=== PATIENT | male | born 2000 | race Caucasian/White ===

== ENCOUNTER → 2020-12-24 18:17 | Outpatient (CLI) | payer MEDICAID, SELFPAY ==
[2020-12-24 19:02] LABS: Basophils % 0.2 % (0.1-2.0); Eosinophils # 0.1 K/mm3 (0.0-0.4); Eosinophils % 0.5 % (0.1-12.0); Hematocrit 46.1 % (42.0-52.0); Hemoglobin 15.6 g/dL (14.1-18.0); Lymphocytes # 2.3 K/mm3 (0.7-4.5); Lymphocytes % 20.5 % (10-50); Mean Corpuscular HGB Conc 33.8 g/dL (31.8-35.4); Mean Corpuscular Hemoglobin 29.5 pg (27.0-31.2); Mean Corpuscular Volume 87.4 fl (80-94); Monocytes # 0.7 K/mm3 (0.1-1.0); Monocytes % 6.7 % (1.7-9.3); Neutrophils # 7.9 K/mm3 (1.8-7.8); Platelet Count 330 K/mm3 (142-424); Red Blood Count 5.28 M/mm3 (4.60-6.20); Red Cell Distribution Width 13.6 % (11.5-17.5)
[2020-12-24 19:05] LABS: Alanine Aminotransferase 43 U/L (12-78); Albumin Level 4.6 g/dl (3.5-5.0); Alkaline Phosphatase 138 U/L (38-126); Anion Gap 10.2 mEq/L (5-15); Aspartate Amino Transferase 40 U/L (17-59); Bilirubin,Total 0.5 mg/dl (0.2-1.3); Blood Urea Nitrogen 11 mg/dl (9-20); Calcium 9.8 mg/dl (8.4-10.2); Carbon Dioxide 28 mmol/L (22.0-30.0); Chloride 104 mmol/L (98-107); Estimated Glomerular Filt Rate 121 ml/min (>60); GFR (African American) 146 ML/MIN (>60); Globulin 4.4 g/dL (1.3-3.2); Glucose 99 mg/dl (74-100); Potassium 4.2 mmoL/L (3.5-5.1); Sodium 138 mmol/L (136-145)
[2020-12-24 19:37] LABS: Thyroid Stimulating Hormone 2.86 uIU/mL (0.465-4.68)
[2020-12-24 19:55] LABS: Vitamin B12 195 pg/mL (239-931)
== END ==
PROVIDERS: Visit Provider Family Medicine
DX: G43.909 Migraine, unspecified, not intractable, without status migrainosus (principal)
CPT/HCPCS: 80053; 82607; 84443; 85025

== ENCOUNTER → 2021-01-04 08:25 | Outpatient (CLI) | payer MEDICAID, SELFPAY ==
--- NOTE | 2021-01-04 08:25 | US_ITS ---
PROCEDURE: US LIVER Referring Doctor: Sarkis Valle Patient Age:20Y CLINICAL INDICATION: fatty liver Elevated liver enzymes/LFTs COMPARISON: No exams were available for comparison FINDINGS: Large patient. LIVER: Hepatic steatosis/diffuse fatty changes. No hepatic mass. No focal liver lesion.. No biliary ductal dilatation Portal vein appears to have normal direction and flow GALLBLADDER. Normal size. No gallbladder wall thickening nor inflammatory changes. Trace, minimal sludge and debris at gallbladder most evident towards dependent gallbladder. No gallstones evident COMMON BOWEL DUCT-normal measuring 3 mm at hilum of liver.. No intrahepatic biliary ductal dilatation either RIGHT KIDNEY. Normal size 11.35 cm in length. Cortex well maintained. No hydronephrosis nor mass. PANCREAS: Unremarkable. Head and body are best visualized and appear satisfactory tail obscured by overlying gas IMPRESSION: 1. No acute findings in the abdomen. 2..No gallstones evident. Only trace sludge at gallbladder 3.. Diffuse fatty changes the liver/hepatic steatosis Diffuse fatty changes of liver/hepatic steatosis Dictated by: Leandro Walsh MD 01/04/2021 12:51 Leandro Walsh MD in [facility] 01/04/2021 12:51
== END ==
PROVIDERS: PCP Family Medicine; Visit Provider Family Medicine
DX: K76.0 Fatty (change of) liver, not elsewhere classified (principal)
CPT/HCPCS: 76705

== ENCOUNTER → 2021-01-21 18:00 | Outpatient (CLI) | payer MEDICAID, SELFPAY ==
[2021-01-21 19:46] LABS: T4 (Thyroxine) 6.8 ug/dl (5.53-11.0)
[2021-01-21 20:00] LABS: Thyroid Stimulating Hormone 2.53 uIU/mL (0.465-4.68)
== END ==
PROVIDERS: Visit Provider Family Medicine
DX: R53.83 Other fatigue (principal)
CPT/HCPCS: 84436; 84443

== ENCOUNTER → 2021-02-19 14:31 | Outpatient (CLI) | payer MEDICAID, SELFPAY ==
--- NOTE | 2021-02-19 14:31 | CT_ITS ---
PROCEDURE: CT HEAD/BRAIN WO CON CLINICAL INDICATION: headache COMPARISON: No exams were available for comparison TECHNIQUE: Axial images obtained. All CT scans at the facility use one or more dose reduction, viz: automated exposure control, ma/kV adjustment per patient size (including targeted exams where dose is matched to indication, i.e. head), or iterative reconstruction technique. FINDINGS: No midline shift, mass effect, intra or extra-axial intracranial hemorrhage, hydrocephalus, or extra-axial fluid collection is evident. The faust-white matter differentiation is unremarkable. Brain parenchymal volume is appropriate for the age of the patient. The calvarium has an unremarkable appearance. Visualized paranasal sinuses and mastoid air cells are clear. No sinus air-fluid level. IMPRESSION: No acute intracranial process Dictated by: Keeley Seymour 02/19/2021 16:37 Keeley Seymour in [facility] 02/19/2021 16:37
== END ==
PROVIDERS: PCP Family Medicine; Visit Provider Specialist
DX: R51.9 Headache, unspecified (principal)
CPT/HCPCS: 70450; 95806

== ENCOUNTER 2021-11-07 07:54 | Emergency (ER) | payer MEDICAID, SELFPAY ==
[2021-11-07 07:56] VITALS: BP 135/75; PULSE 105; RESP 20; TEMP 37.7; O2SAT 98; BMI 43.2
[2021-11-07 08:04] VITALS: BMI 43.2
--- NOTE | 2021-11-07 08:05 | XR_ITS ---
PROCEDURE: XR CHEST 2V CLINICAL HISTORY: COUGH COMPARISON: CR CXR CHEST(2 VIEWS-NOT PORTABLE) from 01/27/2008 CR CXR CHEST(2 VIEWS-NOT PORTABLE) from 03/27/2009 CR CXR CHEST(2 VIEWS-NOT PORTABLE) from 07/19/2016 FINDINGS: The cardiomediastinal silhouette and pulmonary vascularity are within normal limits. Multifocal ground-glass opacities are present in both lungs more extensive on the left compared to the right worrisome for atypical/Covid19 pneumonia. No effusions. No evidence of pneumothorax. No acute bony abnormalities. IMPRESSION: Multifocal ground-glass infiltrates which may be related to a atypical/Covid19 pneumonia. Please correlate with clinical parameters. Dictated by: Lukasz Serrano MD 11/07/2021 08:29 Lukasz Serrano MD in [facility] 11/07/2021 08:29
[2021-11-07 08:10] LABS: Influenza A, PCR Not Detected (NotDetected); Influenza B, PCR Not Detected (NotDetected)
--- NOTE | 2021-11-07 08:25 | PC.NURSE ---
pt going to ct
--- NOTE | 2021-11-07 08:26 | HMH.EDGENADL ---
ED Disposition Clinical Impression: Pneumonia due to COVID-19 virus Disposition: Home, Self-Care Condition on Discharge: Good Instructions: DI for COVID-19 (Suspected or Confirmed ) Additional Instructions: You will be called to schedule an appointment for monoclonal antibody infusion. Tylenol as needed for fever and pain. COVID-19 Isolation: Isolate yourself for a MINIMUM of 10 days from onset of symptoms: What to do: Monitor your symptoms. If you have an emergency warning sign (including trouble breathing), seek emergency medical care immediately. Stay in a separate room from other household members, if possible. Use a separate bathroom, if possible. Avoid contact with other members of the household and pets. Don?t share personal household items, like cups, towels, and utensils. Wear a mask when around other people if able. You can be around others AFTER: 10 days since symptoms first appeared AND 24 hours with no fever without the use of fever-reducing medications AND Other symptoms of COVID-19 are improving Referrals: Sarkis Valle MD [Primary Care Provider] - - Critical Care Critical Care Time: No Attestation: On 11/07/21, the high probability of a clinically significant, sudden or life threatening deterioration of the following system(s) required my full and direct attention, intervention and personal management. The time I documented below is in addition to time spent performing reported procedures but includes the following listed in this critical care notation. Medical Decision Making - Vince Inquiry Pt receiving controlled substance: No Vital Signs: 11/07/21 07:56 Temperature 100 F H Temperature Source Oral Pulse Rate [Radial] 105 H Respiratory Rate 20 Blood Pressure [Right Arm] 135/75 Blood Pressure Mean [Right Arm] 95 Blood Pressure Position [Right Arm] Sitting 02 Sat by Pulse Oximetry 98 Oxygen Delivery Method Room Air - Lab Data Lab Results 11/07/21 08:00: SARS-CoV-2 (PCR) Detected A, Influenza A Untype (PCR) Not detected, Influenza Type B (PCR) Not detected Orders (Tests/Meds): ED MEDICATIONS Discontinued Medications Generic Name Dose Route Start Last Admin Trade Name Freq PRN Reason Stop Dose Admin Ibuprofen 600 mg 11/07/21 08:05 11/07/21 08:12 Ibuprofen 600 Mg Tablet PO 11/07/21 08:06 600 mg ONCE ONE Administration - Radiology Data #1 Image(s): Chest Image Reviewed: Yes I reviewed the patient's radiology image, Yes I have reviewed radiologist's interpretation PROCEDURE: XR CHEST 2V CLINICAL HISTORY: COUGH COMPARISON: CR CXR CHEST(2 VIEWS-NOT PORTABLE) from 01/27/2008 CR CXR CHEST(2 VIEWS-NOT PORTABLE) from 03/27/2009 CR CXR CHEST(2 VIEWS-NOT PORTABLE) from 07/19/2016 FINDINGS: The cardiomediastinal silhouette and pulmonary vascularity are within normal limits. Multifocal ground-glass opacities are present in both lungs more extensive on the left compared to the right worrisome for atypical/Covid19 pneumonia. No effusions. No evidence of pneumothorax. No acute bony abnormalities. IMPRESSION: Multifocal ground-glass infiltrates which may be related to a atypical/Covid19 pneumonia. Please correlate with clinical parameters. Dictated by: Lukasz Serrano MD 11/07/2021 08:29 Lukasz Serrano MD in [facility] 11/07/2021 08:29 Medical Decision Narrative: Discussed monoclonal antibody therapy. He consents. Order placed. General Adult HPI - General Chief complaint: Upper Respiratory Infection Stated complaint: cough, no taste/smell, body aches Time Seen by Provider: 11/07/21 08:26 Mode of Arrival: Ambulatory Limitations: No Limitations Description of Symptoms (Recalled from ER Triage Doc. by RN): TO ED PER PVT CAR WITH C/O COUGH, CONGESTION, RUNNY NOSE, LOSS OF TASTE AND SMELL X 1 WEEK. PT STATES EXPOSED TO GRANDMOTHER DX WITH COVID. - History of Present Illness HPI narrative: S
[2021-11-07 08:33] LABS: Coronavirus 19, PCR Detected (NotDetected)
[2021-11-07 09:16] VITALS: BP 148/76; PULSE 101; RESP 22; TEMP 37.7; O2SAT 96
== END 2021-11-07 09:17 | disposition home or self-care (01) ==
PROVIDERS: Emergency Provider Emergency Medicine; PCP Family Medicine
DX: U07.1 COVID-19 (principal); J12.82 Pneumonia due to coronavirus disease 2019
CPT/HCPCS: 71046; 99282; C9803; U0003; U0005

== ENCOUNTER 2022-10-28 18:35 | Emergency (ER) | payer MEDICAID, SELFPAY ==
[2022-10-28 18:45] VITALS: BP 131/78; PULSE 87; RESP 18; TEMP 36.6; O2SAT 98; BMI 47.9
--- NOTE | 2022-10-28 19:19 | EXP.UTC ---
Discharge Plan Disposition Patient Disposition: Home, Self-Care Condition: Good Prescriptions Prescriptions: New prednisone 5 mg tablets,dose pack See Rx Instructions .ROUTE .COMPLEX Qty: 21 0RF Rx Instructions: take as directed on package instructions Referrals Follow up/Referrals: Sarkis Valle MD [Primary Care Provider] - See instructions Activity Restrictions/Add. Instructions Additional Instructions/Restrictions: Over the counter benadryl as directed on package Start oral steriods tomorrow Follow up with your Family Doctor if no improvment or return of rash Return if needed Straight to ER if any life threatening symptoms Clinical Impressions Clinical Impression: Urticaria Instructions Patient Instructions: DI for General Allergic Reactions, DI for Hives Discharge ED Provider: Radha Peng [facility] General Stated complaint: Hives Mode of Arrival: Ambulatory Source of Information: Patient Limitations: No Limitations Time Seen by Provider: 10/28/22 19:19 Description of Symptoms (Recalled from Triage Doc. by RN): PATIENT C/O HIVES ALL OVER X 2 DAYS HEENT Symptoms (Recalled from RN notes): No Resp Symptoms (Recalled from RN notes): No Skin Symptoms (Recalled from RN notes): Yes MS Symptoms (Recalled from RN notes): No Functional Status (Recalled from RN notes): WNL History of Present Illness Provider Complaint: Patient states that he has been helping his uncle with laying some lines States that there was a dust all over the lines and not sure what it was but he started breaking out all over his hands, abdomen, face and legs States that he tried benadryl at home but hasnt helped and has continued to get worse over the last couple of days Related Data Previous Rx's Medication Instructions Recorded prednisone 5 mg tablets in a dose See Rx Instructions PO .COMPLEX 10/28/22 pack #21 tabs Allergies Allergy/AdvReac Type Severity Reaction Status Date / Time Penicillins [PENICILLINS] Allergy Unknown Verified 04/23/21 08:38 Worker's Comp Is this a Worker's Comp case?: No [facility] Disclaimer: The information contained in this section may have been updated after the patient was seen, as this information can be updated by other users. Social History Smoking Status: Never smoker alcohol intake: never substance use type: denies use current occupational status: unemployed Travel in the last 8 weeks: None household members: family housing: house number of children: 0 ROS Obtained: Yes All systems reviewed & no additional complaints except as documented and Yes Systems reviewed as appropriate & no additional complaints except as documented Constitutional Constitutional: Reports system reviewed and no additional complaints, except as documented and Reports as per HPI ENT Ears, Nose, Mouth, and Throat: Reports system reviewed and no additional complaints, except as documented and Reports as per HPI Cardiovascular Cardiovascular: Reports system reviewed and no additional complaints, except as documented and Reports as per HPI Respiratory Respiratory: Reports system reviewed and no additional complaints, except as documented, Reports as per HPI and Denies shortness of breath Gastrointestinal Gastrointestingal: Reports system reviewed and no additional complaints, except as documented and as per HPI Integumentary/Breasts Skin/Breast: Reports system reviewed and no additional complaints, except as documented, Reports as per HPI, Reports pruritus and Reports rash Physical Exam General General appearance: alert and in no apparent distress Expanded ENT Exam Mouth exam: Present normal external inspection; Absent lip swelling or tongue swelling Throat exam: Present normal inspection; Absent muffled voice Respiratory Respiratory exam: Present normal lung sounds bilaterally; Absent respiratory distress or wheezes Cardiovascular Cardiovascular exam: Present regular rate, normal rhythm
[2022-10-28 20:01] VITALS: BP 131/78; PULSE 87; RESP 18; TEMP 36.6; O2SAT 98
== END 2022-10-28 20:12 | disposition home or self-care (01) ==
PROVIDERS: Emergency Provider Nurse Practitioner; PCP Family Medicine
DX: L50.9 Urticaria, unspecified (principal)
CPT/HCPCS: 99212

== ENCOUNTER 2023-10-09 05:43 | Observation (INO) | payer MEDICAID, SELFPAY ==
[2023-10-09] VITALS (7 sets, daily range): BP systolic 119–145; BP diastolic 69–83; PULSE 59–94; RESP 16–19; TEMP 36.6–36.8; O2SAT 96–100; BMI 42.5; BMI 43.8
[2023-10-09 06:12] LABS: Basophils % 0.3 % (0.1-2.0); Eosinophils # 0.2 K/mm3 (0.0-0.4); Eosinophils % 1.9 % (0.1-12.0); Hematocrit 42.5 % (42.0-52.0); Hemoglobin 14.7 g/dL (14.1-18.0); Lymphocytes # 2.7 K/mm3 (0.7-4.5); Lymphocytes % 25.1 % (10-50); Mean Corpuscular HGB Conc 34.6 g/dL (31.8-35.4); Mean Corpuscular Hemoglobin 30.5 pg (27.0-31.2); Mean Corpuscular Volume 88.4 fl (80-94); Mean Platelet Volume 8.5 fl (7.4-10.4); Monocytes # 0.5 K/mm3 (0.1-1.0); Monocytes % 4.8 % (1.7-9.3); Neutrophils # 7.3 K/mm3 (1.8-7.8); Neutrophils % 67.9 % (37.0-80.0); Platelet Count 244 K/mm3 (142-424); Red Blood Count 4.81 M/mm3 (4.60-6.20); Red Cell Distribution Width 13.9 % (11.5-17.5); White Blood Count 10.7 K/mm3 (4.8-10.8)
[2023-10-09 06:15] LABS: Alanine Aminotransferase 108 U/L (12-78); Alkaline Phosphatase 182 U/L (38-126); Aspartate Amino Transferase 71 U/L (17-59); Bilirubin,Total 0.5 mg/dl (0.2-1.3); Blood Urea Nitrogen 18 mg/dl (9-20); Carbon Dioxide 27 mmol/L (22.0-30.0); Chloride 103 mmol/L (98-107); Creatinine Clearance Estimated 155 mL/min (50-200); Estimated Glomerular Filt Rate 104 ml/min (>60); GFR (African American) 125 ML/MIN (>60); Glucose 104 mg/dl (74-100)
[2023-10-09 06:16] LABS: Albumin Level 4.3 g/dl (3.5-5.0); Albumin/Globulin Ratio 1.1 (1.1-1.8); Anion Gap 9.7 mEq/L (5-15); Potassium 3.7 mmoL/L (3.5-5.1); Sodium 136 mmol/L (136-145); Total Protein,Serum 8.3 g/dl (6.3-8.2)
[2023-10-09 06:18] LABS: Lipase 859 U/L (23-300)
--- NOTE | 2023-10-09 06:26 | CT_ITS ---
PROCEDURE INFORMATION: Exam: CT Abdomen And Pelvis With Contrast Exam date and time: 10/09/2023 6:44 AM Age: 22 years old Clinical indication: Abdominal pain; Generalized; Additional info: Ruq/epigastric pain, transaminitis + high lipase TECHNIQUE: Imaging protocol: Computed tomography of the abdomen and pelvis with contrast. Radiation optimization: All CT scans at this facility use at least one of these dose optimization techniques: automated exposure control; mA and/or kV adjustment per patient size (includes targeted exams where dose is matched to clinical indication); or iterative reconstruction. Contrast material: ISOVUE; Contrast volume: 75 ml; Contrast route: IV; REPORTING DATA: Count of CT and Cardiac NM exams in prior 12 months: This patient has received 0 known CTs and 0 known cardiac nuclear medicine studies in the 12 months prior to the current study. COMPARISON: US LIVER 01/04/2021 8:33 AM FINDINGS: Lungs: Visualized lung bases are clear. Pleural spaces: No pleural effusion. Liver: Prominent liver measuring 25 cm in length with diffuse fatty infiltration. Gallbladder and bile ducts: No acute abnormality. No calcified stones. No ductal dilation. Pancreas: Proximal peripancreatic edema and fat stranding consistent with acute interstitial pancreatitis. No discrete peripancreatic collection demonstrated at this time. Spleen: Prominent spleen measuring 16.7 cm in length. Adrenal glands: No significant or acute abnormality. Kidneys and ureters: No acute abnormality. No hydronephrosis. Stomach and bowel: No acute abnormality. No obstruction. No significant bowel thickening. Appendix: Grossly normal nondilated visualized appendix. Intraperitoneal space: No significant fluid collection. No free air. Vasculature: No acute abnormality. No abdominal aortic aneurysm. Lymph nodes: No enlarged lymph nodes. Urinary bladder: Unremarkable as visualized. Reproductive: Unremarkable as visualized. Bones/joints: No acute osseous abnormality. No dislocation. Soft tissues: Large body habitus. IMPRESSION: 1. Proximal peripancreatic edema and fat stranding consistent with acute interstitial pancreatitis. 2. Hepatosplenomegaly and diffuse fatty infiltration of the liver.
--- NOTE | 2023-10-09 06:26 | ECG_ITS ---
APPROVED REPORT Exam: Resting ECG HR:79 bpm ECG Measurements Heart Rate 79 AXES WY 189 P 45 QRSd 93 QRS 10 QT 352 T 8 QTc 387 Conclusion SINUS RHYTHM POSSIBLE RIGHT VENTRICULAR CONDUCTION DELAY [RSR (QR) IN V1/V2] BORDERLINE ECG UNCONFIRMED REPORT Electronically signed by : Tyler Ackerman MD 10/09/2023 16:07:42
--- NOTE | 2023-10-09 06:27 | PC.NURSE ---
pt states last po intake was at 2300 last night
--- NOTE | 2023-10-09 06:59 | HMH.EDGENADL ---
Discharge Plan Disposition Patient Disposition: Admitted Prescriptions Prescriptions: No Action No Known Home Medications Referrals Follow up/Referrals: Sarkis Valle MD [Primary Care Provider] - See instructions Clinical Impressions Clinical Impression: Acute pancreatitis Instructions Patient Instructions: DI for Acute Abdominal Pain Discharge ED Provider: Claudine Iniguez General Adult HPI <Claudine Iniguez DO - Last Filed: 10/09/23 07:54> General Chief complaint: Abdominal Pain Stated complaint: stomach/back pain Time Seen by Provider: 10/09/23 06:01 Mode of Arrival: Ambulatory Source of Information: Patient Limitations: No Limitations Description of Symptoms (Recalled from ER Triage Doc. by RN): Pt reports having upper abd and upper back pain since last week that comes and goes, reports dry heaving this am History of Present Illness HPI narrative: This patient is a 22-year-old male with a history of obesity, fatty liver disease, and hypogonadism presented to the emergency department for evaluation with concern for epigastric abdominal pain radiating to his back. He notes that it started on 09/28 after he was putting up a trim in a house. He notes that he had had his arms above his head for a long period of time, so he thought that maybe that was what was causing it. He notes that the pain went away after he rested for several days, however it came back acutely this week. He notes that has not been able to eat or drink very much without significant abdominal pain, and he said that he had been dry heaving this morning. He denies any fevers, chills, changes in bowel movements, or other concerns. Related Data Home Medications Medication Instructions Recorded Confirmed No Known Home Medications 10/09/23 10/09/23 Allergies Allergy/AdvReac Type Severity Reaction Status Date / Time Penicillins [PENICILLINS] Allergy Unknown Verified 04/23/21 08:38 PFSH <Claudine Iniguez DO - Last Filed: 10/09/23 07:54> [facility] Disclaimer: The information contained in this section may have been updated after the patient was seen, as this information can be updated by other users. Social History Smoking Status: Current every day smoker alcohol intake: never substance use type: denies use current occupational status: unemployed Travel in the last 8 weeks: None household members: family housing: house number of children: 0 <Claudine IniguezDO - Last Filed: 10/09/23 07:54> ROS Obtained: Yes All systems reviewed & no additional complaints except as documented Physical Exam <Claudine IniguezDO - Last Filed: 10/09/23 07:54> General General appearance: alert, in no apparent distress and obese Head Head exam: atraumatic and normocephalic Eye Eye exam: Present normal appearance, PERRL and EOMI ENT ENT exam: Present normal exam, normal oropharynx, mucous membranes moist and normal external ear exam Neck Neck exam: Present normal inspection, full ROM and trachea midline; Absent tenderness Chest Chest inspection: Present normal inspection and symmetric chest wall rise; Absent tenderness Respiratory Respiratory exam: Present normal lung sounds bilaterally; Absent respiratory distress, wheezes, stridor or accessory muscle use Cardiovascular Cardiovascular exam: Present regular rate and normal rhythm Abdominal Exam Abdominal exam: Present soft, tenderness (Epigastric and left upper quadrant region) and normal bowel sounds; Absent distention, guarding, rebound or rigidity Extremities Exam Extremities exam: Present normal inspection, full ROM and normal capillary refill; Absent tenderness or edema Back Exam Back exam: Present normal inspection and full ROM; Absent tenderness Neurological Exam Neurological exam: Present alert, oriented X3, CN II-XII intact and normal gait; Absent motor sensory deficit Psychiatric Psychiatric exam: Present normal affect and no
--- NOTE | 2023-10-09 07:13 | PC.NURSE ---
Pt attempted to provide urine sample. Unable to at this time.
--- NOTE | 2023-10-09 07:14 | PC.NURSE ---
Report from BREE Peralta
--- NOTE | 2023-10-09 08:32 | PC.NURSE ---
Pt attempted to obtain urine again. Unable to at this time.
--- NOTE | 2023-10-09 08:56 | PC.NURSE ---
Have been attempting to reach hospitalist for approximately 45 minutes without any calls back. fish bait processing supervisor notified
--- NOTE | 2023-10-09 09:20 | PC.NURSE ---
Was able to reach hospitalist at this time for ED attending
--- NOTE | 2023-10-09 09:27 | PC.NURSE ---
CM notified for admission
[2023-10-09 09:45] LABS: Microscopic, Urine URINE MICROSCOPIC (MICROSCOPIC)
--- NOTE | 2023-10-09 09:46 | PC.NURSE ---
Nurse unavailable at this time for report. She will call back for report
[2023-10-09 10:03] LABS: Appearance,Urine CLEAR (Clear); Bilirubin,Urine Negative (Negative); Blood, Urine Negative (Negative); Color,Urine YELLOW (Yellow); Glucose,Urine (UA) Negative (Negative); Ketones,Urine Negative (Negative); Leukocyte Esterase,Urine Negative (Negative); Nitrate,Urine Negative (Negative); PH,Urine 6.5 (5.0-8.5); Protein,Urine Negative (Negative); Urobilinogen,Urine 0.2 EU/dl (0.2)
--- NOTE | 2023-10-09 10:13 | PC.NURSE ---
received report from Essie Webb RN
--- NOTE | 2023-10-09 10:13 | PC.NURSE ---
Report to BREE Stock
--- NOTE | 2023-10-09 10:33 | PC.NURSE ---
2nd floo staff at bedside to transfer pt to Med/Surg
--- NOTE | 2023-10-09 10:37 | PC.NURSE ---
arrived by w/c from ED
--- NOTE | 2023-10-09 10:37 | PC.NURSE ---
PT ARRIVED TO FLOOR VIA WHEELCHAIR.
[2023-10-09 11:13] LABS: Bacteria,Urine Trace /lpf
[2023-10-09 12:56] LABS: Chol/HDL Ratio 6.6 (1-3.5); Cholesterol 206 mg/dl (140-200); HDL Cholesterol 31 mg/dl (40-60); Triglycerides 212 mg/dl (30-150); VLDL Cholesterol 42 mg/dL (0-40)
--- NOTE | 2023-10-09 18:03 | EXP.HP ---
History of Present Illness *Admission Date: 10/09/23 *Reason for visit:: Abdominal pain *History of present illness: Patient is a 22-year-old male with past medical history of morbid obesity who presents to the hospital due to abdominal pain. According to the patient he has been having intermittent epigastric abdominal pain for the past 3 to 4 days, pain radiates to back, sharp, denies any previous similar episodes. He had associated nausea and vomiting-nonbloody. Denied diarrhea constipation. Patient otherwise denied chest pain shortness of breath fevers chills. [facility] Disclaimer: The information contained in this section may have been updated after the patient was seen, as this information can be updated by other users. Medical History Anxiety Depression Family History (Updated 10/09/23 @ 11:46 by Dayami Araujo RN) Other Alcohol abuse Bipolar 1 disorder Breast cancer Heart attack Prostate cancer Social History (Updated 10/09/23 @ 11:48 by Dayami Araujo RN) Smoking Status: Never smoker alcohol intake: never substance use type: denies use current occupational status: unemployed Travel in the last 8 weeks: None adopted: No household members: family housing: house number of children: 0 Review of Systems Review of Systems Review of systems:: pertinent systems reviewed and negative unless documented below Meds Home Medications and Allergies Home Medications Medication Instructions Recorded Confirmed Type No Known Home Medications 10/09/23 10/09/23 History New Prescriptions to Start Prescriptions: Allergies Allergy/AdvReac Type Severity Reaction Status Date / Time Penicillins [PENICILLINS] Allergy Unknown Verified 04/23/21 08:38 cetirizine [From Zyrtec] AdvReac Verified 10/09/23 11:50 Exam Data for Last 24 hours Vital signs and Labs for Last 24 Hours: Temp Pulse Resp BP Pulse Ox O2 Del Method 97.9 F 59 L 18 119/71 100 Room Air 10/09/23 16:00 10/09/23 16:00 10/09/23 16:00 10/09/23 16:00 10/09/23 16:00 10/09/23 17:00 Laboratory Results - last 24 hr 10/09/23 05:59: WBC 10.7, RBC 4.81, Hgb 14.7, Hct 42.5, MCV 88.4, MCH 30.5, MCHC 34.6, RDW 13.9, Plt Count 244, MPV 8.5, Neut % (Auto) 67.9, Lymph % (Auto) 25.1, Creek % (Auto) 4.8, Eos % (Auto) 1.9, Baso % (Auto) 0.3, Neut # (Auto) 7.3, Lymph # (Auto) 2.7, Creek # (Auto) 0.5, Eos # (Auto) 0.2, Baso # (Auto) 0.0, Sodium 136, Potassium 3.7, Chloride 103, Carbon Dioxide 27, Anion Gap 9.7, BUN 18, Creatinine 0.90, Estimated Creat Clear 155, Estimated GFR 104, Est GFR ( Amer) 125, Glucose 104 H, Calcium 9.0, Total Bilirubin 0.5, AST 71 H, ALT 108 H, Alkaline Phosphatase 182 H, Total Protein 8.3 H, Albumin 4.3, Globulin 4.0 H, Albumin/Globulin Ratio 1.1, Triglycerides 212 H, Cholesterol 206 H, LDL Cholesterol Direct 120.50, VLDL Cholesterol 42 H, HDL Cholesterol 31 L, Cholesterol/HDL Ratio 6.6 H, Lipase 859 H 10/09/23 09:40: Urine Color Yellow, Urine Appearance Clear, Urine pH 6.5, Ur Specific [place] 1.010, Urine Protein Negative, Urine Glucose (UA) Negative, Urine Ketones Negative, Urine Blood Negative, Urine Nitrate Negative, Urine Bilirubin Negative, Urine Urobilinogen 0.2, Ur Leukocyte Esterase Negative, Urine RBC None, Urine WBC 3-5, Ur Squamous Epith Cells 5-10, Urine Bacteria Trace I & O for Last 24 hours: Intake & Output 10/06/23 10/07/23 10/08/23 10/09/23 23:59 23:59 23:59 23:59 Weight 163.378 kg Constitutional Constitutional: no acute distress *Routine HEENT Exam Head: Present normocephalic Eye: Present EOMI and PERRL ENT: Present mucous membranes moist *Routine Neck Exam Neck: Present supple; Absent lymphadenopathy *Routine Respiratory Exam Respiratory: Present CTA bilaterally *Routine Cardiovascular Exam Cardiovascular: Present RRR *Routine Abdominal Exam Abdominal: Present soft and normoactive bowel sounds; Absent tenderne
--- NOTE | 2023-10-09 18:19 | PC.NURSE ---
A&OX4. PT HAS TOLERATED RA WELL THROUGHOUT SHIFT. RESPIRATIONS REGULAR AND UNLABORED. LUNG SOUNDS CLEAR THROUGHOUT. NO COUGH NOTED. ACTIVE BOWEL SOUNDS HEARD IN ALL 4 QUADRANTS. SOFT AND NONTENDER ABDOMEN. NO BM THUS FAR. VOIDS INDEPENDENTLY VIA BATHROOM. STEADY GAIT NOTED. HAND MANAGER CUSTOMS EQUAL. +2 PULSES NOTED THROUGHOUT. NO EDEMA NOTED. NO N/V/D REPORTED THUS FAR. NS INFUSING AT 100ML/HR. NO PAIN REPORTED THUS FAR. MOM HAS REMAINED AT BEDSIDE THROUGHOUT SHIFT. BED IN LOWEST POSITION. CALL LIGHT WITHIN REACH. NO QUESTIONS OR CONCERNS VOICED. VSS.
[2023-10-10 01:55] VITALS: BP 130/75; PULSE 65; RESP 16; O2SAT 100
--- NOTE | 2023-10-10 01:55 | PC.NURSE ---
patient called out complaining of chest pressure and pain in his back rating it 5/10. vitals are 130/75, HR 65, O2 100 on room air. Patients breathing is unlabored. No complaints of shortness of breath. CELL MAKER notified, putting in orders for IV pain and nausea meds. EKG was sinus rythym.
--- NOTE | 2023-10-10 02:05 | ECG_ITS ---
APPROVED REPORT Exam: Resting ECG HR:72 bpm ECG Measurements Heart Rate 72 AXES VA 173 P 44 QRSd 107 QRS 15 QT 374 T 30 QTc 398 Conclusion SINUS RHYTHM WITH SINUS ARRHYTHMIA NORMAL ECG UNCONFIRMED REPORT Electronically signed by : Tyler Ackerman MD 10/10/2023 11:42:32
[2023-10-10 04:00] VITALS: BP 110/62; PULSE 75; RESP 16; TEMP 36.7; O2SAT 98; BMI 43.2
[2023-10-10 07:38] VITALS: BP 125/66; PULSE 83; RESP 19; TEMP 36.7; O2SAT 98
[2023-10-10 07:44] LABS: Basophils % 0.3 % (0.1-2.0); Eosinophils # 0.1 K/mm3 (0.0-0.4); Eosinophils % 0.7 % (0.1-12.0); Hematocrit 41.6 % (42.0-52.0); Hemoglobin 14.2 g/dL (14.1-18.0); Lymphocytes # 2.1 K/mm3 (0.7-4.5); Lymphocytes % 26.5 % (10-50); Mean Corpuscular HGB Conc 34.1 g/dL (31.8-35.4); Mean Corpuscular Hemoglobin 30.2 pg (27.0-31.2); Mean Corpuscular Volume 88.4 fl (80-94); Monocytes # 0.3 K/mm3 (0.1-1.0); Monocytes % 4.1 % (1.7-9.3); Neutrophils # 5.5 K/mm3 (1.8-7.8); Neutrophils % 68.4 % (37.0-80.0); Platelet Count 251 K/mm3 (142-424); Red Blood Count 4.71 M/mm3 (4.60-6.20); Red Cell Distribution Width 13.9 % (11.5-17.5)
[2023-10-10 08:05] LABS: Anion Gap 13.1 mEq/L (5-15); Blood Urea Nitrogen 12 mg/dl (9-20); Calcium 8.7 mg/dl (8.4-10.2); Carbon Dioxide 25 mmol/L (22.0-30.0); Chloride 103 mmol/L (98-107); Creatinine Clearance Estimated 170 mL/min (50-200); Estimated Glomerular Filt Rate 119 ml/min (>60); GFR (African American) 144 ML/MIN (>60); Glucose 81 mg/dl (74-100); Potassium 4.1 mmoL/L (3.5-5.1); Sodium 137 mmol/L (136-145)
--- NOTE | 2023-10-10 15:21 | EXP.PN ---
Subjective *Date: 10/10/23 *Time: 15:21 Interval history: Patient was seen and evaluated at the bedside. denies chest pain, shortness of breath, nausea, vomiting, abdominal pain. Patient does not have any complaints at this time. feels better overall Exam Data for Last 24 hours Vital signs and Labs for Last 24 Hours: Temp Pulse Resp BP Pulse Ox O2 Del Method 98.1 F 83 19 125/66 98 Room Air 10/10/23 07:38 10/10/23 07:38 10/10/23 07:38 10/10/23 07:38 10/10/23 07:38 10/10/23 14:31 Laboratory Results - last 24 hr 10/10/23 06:20: WBC 8.0 D, RBC 4.71, Hgb 14.2, Hct 41.6 L, MCV 88.4, MCH 30.2, MCHC 34.1, RDW 13.9, Plt Count 251, MPV 9.0, Neut % (Auto) 68.4, Lymph % (Auto) 26.5, [place] % (Auto) 4.1, Eos % (Auto) 0.7, Baso % (Auto) 0.3, Neut # (Auto) 5.5, Lymph # (Auto) 2.1, [place] # (Auto) 0.3, Eos # (Auto) 0.1, Baso # (Auto) 0.0, Sodium 137, Potassium 4.1, Chloride 103, Carbon Dioxide 25, Anion Gap 13.1, BUN 12 D, Creatinine 0.80, Estimated Creat Clear 170, Estimated GFR 119, Est GFR ( Amer) 144, Glucose 81, Calcium 8.7 I & O for Last 24 hours: Intake & Output 10/07/23 10/08/23 10/09/23 10/10/23 23:59 23:59 23:59 23:59 Intake Total 910 / 910 Output Total 0 / 0 0 / 0 Balance 0 / 550 910 / 910 Weight 163.378 kg 161.11 kg Constitutional Constitutional: no acute distress *Routine HEENT Exam Head: Present normocephalic Eye: Present EOMI and PERRL ENT: Present mucous membranes moist *Routine Neck Exam Neck: Present supple; Absent lymphadenopathy *Routine Respiratory Exam Respiratory: Present CTA bilaterally *Routine Cardiovascular Exam Cardiovascular: Present RRR *Routine Abdominal Exam Abdominal: Present soft and normoactive bowel sounds; Absent tenderness *Routine Extremities Exam Extremities: Absent cyanosis, clubbing or edema *Routine Skin Exam Skin: Present warm; Absent rash *Routine Neurological Exam Neurological: Present alert and oriented X3 Assessment and Plan *Assessment and plan (1) Obesity: Status: Chronic Qualifiers: Obesity type: due to excess calories Obesity classification: adult class 3 (BMI >= 40) Body mass index: BMI 45.0-49.9 Serious obesity comorbidity presence: unspecified whether serious comorbidity present Qualified Code(s): E66.01 - Morbid (severe) obesity due to excess calories; Z68.42 - Body mass index [BMI] 45.0-49.9, adult Category: Medical Code(s): E66.9 - Obesity, unspecified (2) Acute pancreatitis: Status: Acute Category: Medical Code(s): K85.90 - Acute pancreatitis without necrosis or infection, unspecified Plan Patient is a 22-year-old male with past medical history of morbid obesity who presents to the hospital due to abdominal pain. According to the patient he has been having intermittent epigastric abdominal pain for the past 3 to 4 days, pain radiates to back, sharp, denies any previous similar episodes. He had associated nausea and vomiting-nonbloody. Denied diarrhea constipation. Patient otherwise denied chest pain shortness of breath fevers chills. Assessment Acute pancreatitis, unclear etiology Morbid obesity Plan started on CLD, advance diet as tolerated DC IV fluids Pain control Advance diet as tolerated Lipid panel ordered-triglycerides mildly elevated DVT prophylaxis-no chemical DVT prophylaxis for now, mobility
[2023-10-10 16:00] VITALS: BP 149/76; PULSE 87; RESP 18; TEMP 36.7; O2SAT 99
--- NOTE | 2023-10-10 18:25 | PC.NURSE ---
A&OX4. TOLERATING RA WELL. HAS TOLERATED ADVANCEMENT FROM CLEAR LIQUIDS TO FULL LIQUID, NO NA/VO NOTED. WILL ADVANCE DIET FOR BREAKFAST. AMBULATORY IN ROOM. HAS HAD NO C/O PAIN, FAMILY AT BEDSIDE. VSS.
[2023-10-10 20:00] VITALS: BP 131/78; PULSE 84; RESP 18; TEMP 37.2; O2SAT 97
[2023-10-11 04:00] VITALS: BP 115/79; PULSE 84; RESP 18; TEMP 36.8; O2SAT 97; BMI 42.5
[2023-10-11 07:31] VITALS: BP 159/86; PULSE 82; RESP 16; TEMP 36.6; O2SAT 100
[2023-10-11 07:41] LABS: Basophils % 0.4 % (0.1-2.0); Eosinophils # 0.1 K/mm3 (0.0-0.4); Hemoglobin 14.9 g/dL (14.1-18.0); Lymphocytes # 2.1 K/mm3 (0.7-4.5); Lymphocytes % 26.6 % (10-50); Mean Corpuscular HGB Conc 35.5 g/dL (31.8-35.4); Mean Corpuscular Hemoglobin 30.6 pg (27.0-31.2); Mean Corpuscular Volume 86.1 fl (80-94); Monocytes # 0.5 K/mm3 (0.1-1.0); Monocytes % 5.8 % (1.7-9.3); Neutrophils # 5.3 K/mm3 (1.8-7.8); Neutrophils % 66.2 % (37.0-80.0); Platelet Count 239 K/mm3 (142-424); Red Blood Count 4.88 M/mm3 (4.60-6.20); Red Cell Distribution Width 13.9 % (11.5-17.5)
[2023-10-11 07:47] LABS: Anion Gap 13.9 mEq/L (5-15); Blood Urea Nitrogen 13 mg/dl (9-20); Calcium 9.2 mg/dl (8.4-10.2); Carbon Dioxide 25 mmol/L (22.0-30.0); Chloride 102 mmol/L (98-107); Creatinine Clearance Estimated 151 mL/min (50-200); Estimated Glomerular Filt Rate 104 ml/min (>60); GFR (African American) 125 ML/MIN (>60); Glucose 74 mg/dl (74-100); Potassium 3.9 mmoL/L (3.5-5.1); Sodium 137 mmol/L (136-145)
--- NOTE | 2023-10-12 14:05 | CARE MANAGER ---
Contacted patient related to hospital discharge. Patient states that he is doing much better. He had no new medications and didn't schedule follow up with Dr. Valle as he is going to change doctors to someone closer to him. Denies questions or concerns. BREE Moss
--- NOTE | 2023-11-02 19:58 | EXP.DC.SUM ---
General Admission date:: 10/09/23 Discharge date: 10/11/23 HPI HPI HPI: Patient is a 22-year-old male with past medical history of morbid obesity who presents to the hospital due to abdominal pain. According to the patient he has been having intermittent epigastric abdominal pain for the past 3 to 4 days, pain radiates to back, sharp, denies any previous similar episodes. He had associated nausea and vomiting-nonbloody. Denied diarrhea constipation. Patient otherwise denied chest pain shortness of breath fevers chills. Hospital Course Hospital Course Hospital Course: Patient was seen and evaluated at the bedside on the day of discharge. Patient is stable for discharge. Patient wishes to be discharged. All patient questions were answered and patient was given time to ask questions. Patient was discharged in stable condition. Patient understands that she can return to ER in case of any sudden changes in health. Total time spent on DC - 38 mins Patient is a 22-year-old male with past medical history of morbid obesity who presents to the hospital due to abdominal pain. According to the patient he has been having intermittent epigastric abdominal pain for the past 3 to 4 days, pain radiates to back, sharp, denies any previous similar episodes. He had associated nausea and vomiting-nonbloody. Denied diarrhea constipation. Patient otherwise denied chest pain shortness of breath fevers chills. Assessment Acute pancreatitis, unclear etiology - improved, tolerating diet, f/u with PCP as OP Morbid obesity Exam Data for Last 24 hours Vital signs and Labs for Last 24 Hours: Temp Pulse Resp BP Pulse Ox O2 Del Method 97.9 F 82 16 159/86 H 100 Room Air 10/11/23 07:31 10/11/23 07:31 10/11/23 07:31 10/11/23 07:31 10/11/23 07:31 10/11/23 08:34 Constitutional Constitutional: no acute distress *Routine HEENT Exam Head: Present normocephalic Eye: Present EOMI and PERRL ENT: Present mucous membranes moist *Routine Neck Exam Neck: Present supple; Absent lymphadenopathy *Routine Respiratory Exam Respiratory: Present CTA bilaterally *Routine Cardiovascular Exam Cardiovascular: Present RRR *Routine Abdominal Exam Abdominal: Present soft and normoactive bowel sounds; Absent tenderness *Routine Extremities Exam Extremities: Absent cyanosis, clubbing or edema *Routine Skin Exam Skin: Present warm; Absent rash *Routine Neurological Exam Neurological: Present alert and oriented X3 DS: Diagnosis Discharge Diagnosis (1) Obesity: Status: Inactive Code(s): E66.9 - Obesity, unspecified Qualifiers: Obesity type: due to excess calories Obesity classification: adult class 3 (BMI >= 40) Body mass index: BMI 45.0-49.9 Serious obesity comorbidity presence: unspecified whether serious comorbidity present Qualified Code(s): E66.01 - Morbid (severe) obesity due to excess calories; Z68.42 - Body mass index [BMI] 45.0-49.9, adult (2) Acute pancreatitis: Status: Inactive Code(s): K85.90 - Acute pancreatitis without necrosis or infection, unspecified Meds Home Medications and Allergies Home Medications Medication Instructions Recorded Confirmed Type No Known Home Medications 10/09/23 10/09/23 History New Prescriptions to Start Prescriptions: Allergies Allergy/AdvReac Type Severity Reaction Status Date / Time Penicillins [PENICILLINS] Allergy Unknown Verified 04/23/21 08:38 cetirizine [From Zyrtec] AdvReac Verified 10/09/23 11:50 Discharge Plan Disposition Patient Disposition: Home, Self-Care Condition: Good Follow up Plan Follow up with: Sarkis Valle MD [Primary Care Provider] - Enter time for follow up (Please call to make your follow up appt. ) Prescriptions/Medication Reconciliation: No Action No Known Home Medications Problem Reconciliation Problems Reviewed?: Yes Patient Discharge Instructions ACTIVITY: Ambulate as tolerated
== END 2023-10-11 10:26 | disposition home or self-care (01) ==
LOC: ER 09:23 → 2ND 10:58
PROVIDERS: Admitting Provider Internal Medicine; Emergency Provider Emergency Medicine; PCP Family Medicine; Visit Provider Internal Medicine
DX: K85.90 Acute pancreatitis without necrosis or infection, unspecified (principal); E66.01 Morbid (severe) obesity due to excess calories; Z68.42 Body mass index [BMI] 45.0-49.9, adult
CPT/HCPCS: 36415; 74177; 80048; 80053; 80061; 81001; 83690; 85025; 93005; 99285; G0378; J2405; Q9967